=== PATIENT | male | born 1985 | race Caucasian/White ===

== ENCOUNTER 2025-03-28 15:42 | Emergency (ER) | payer OTHER ==
[~2025-03-28] VITALS: Ht 177.8 cm; Wt 83.0 kg
[2025-03-28] MEDS ORDERED: TRANEXAMIC ACID 1,000 MG/10 ML AMP TOP ONE (16:00)
[2025-03-28] MEDS ORDERED: CLINDAMYCIN PHOSPHATE/D5W 900 MG/50 ML PIGGYBACK IV ONE (19:15)
[2025-03-28] MEDS ORDERED: HYDROCODON-ACE1 EA10 PO (19:17)
[2025-03-28] MEDS ORDERED: CLEOCIN HCL300 MG PO (19:17)
[2025-03-28 20:02] VITALS: BP 147/102
== END 2025-03-28 20:04 | disposition other institution, planned readmission (95) ==
LOC: ED 15:42
DX: K91.840 Postprocedural hemorrhage of a digestive system organ or structure following a digestive system procedure (principal); Z88.0 Allergy status to penicillin
CPT/HCPCS: 70487; 96374; 99284-25; J3490; Q9967

== ENCOUNTER 2025-04-13 12:34 | Emergency (ER) | payer OTHER ==
[~2025-04-13] VITALS: Ht 177.8 cm; Wt 94.2 kg
[~2025-04-13 12:34] MED LIST: CLEOCIN HCL300 MG PO; HYDROCODON-ACE1 EA10 PO
--- OUTSIDE RECORDS SUMMARY | 2025-04-13 12:41 | XMS ---
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 Cristo has no Care Guidelines for this patient. [place] VISIT COUNT (12 MO.) 2 [facility] TOTAL 2 NOTE: Visits indicate total known visits. ED/C VISIT TRACKING (12 MO.) 04/13/2025 12:34 [facility] TYPE: Emergency COMPLAINT: - POST OP PROBLEM 03/28/2025 15:43 [facility] TYPE: Emergency COMPLAINT: - MOUTH PAIN DIAGNOSES: - Allergy status to penicillin - Postprocedural hemorrhage of a digestive system organ or structure following a digestive system procedure INPATIENT VISIT TRACKING (12 MO.) No inpatient visits to display in this time frame [email or web address]
[2025-04-13] MEDS ORDERED: PERCOCET 5-3251 EACH PO (16:41)
== END 2025-04-13 16:49 | disposition home or self-care (01) ==
LOC: ED 12:34
DX: Z48.815 Encounter for surgical aftercare following surgery on the digestive system (principal); R22.0 Localized swelling, mass and lump, head; Z88.0 Allergy status to penicillin; Z79.2 Long term (current) use of antibiotics
CPT/HCPCS: 99283